=== PATIENT | female | born 2000 | race Caucasian/White ===

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

== ENCOUNTER → 2020-07-29 | Outpatient (CLI) | payer BC ==
[~2020-07-29] MED LIST changes: +ACHD5005 PO; +GADOBUTROL 7.5 MMOL/7.5 ML (GADAVIST) VIAL IV ONE; +IOHEXOL 300 MG/ML 50 ML (OMNIPAQUE 300) VIAL IV ONE
--- NOTE | 2020-07-29 10:58 | Diagnostic Imaging Report ---
INDICATION: Pain. PROCEDURE: The patient was placed on the table in the supine position. The patient's shoulder was prepped and draped in the usual sterile fashion. Local anesthesia was obtained with 2% lidocaine. A needle was advanced into the glenohumeral joint under fluoroscopic control. A mixture of saline, Omnipaque, and gadolinium was then infused. The needle was removed and adequate hemostasis was obtained. The patient tolerated the procedure well and left the Department in stable condition. IMPRESSION: Successful shoulder injection prior to MRI, as described above. Dictated by: Dictated on workstation # [id number]
--- NOTE | 2020-07-29 13:49 | Diagnostic Imaging Report ---
EXAMINATION: Magnetic resonance imaging of the left shoulder with intra-articular contrast. DATE: July 29, 2020. COMPARISON: Left shoulder arthrogram July 29, 2020. HISTORY: 19-year-old female, left shoulder pain. TECHNIQUE: Magnetic Resonance Imaging sequences were performed of the shoulder following the intra-articular administration of contrast. FINDINGS: ROTATOR CUFF, LIGAMENTS, TENDONS, AND MUSCLES: The supraspinatus, infraspinatus, teres minor, and subscapularis tendons and muscles are intact. There is normal rotator cuff muscle bulk and signal. LONG HEAD OF BICEPS: The biceps labral attachment and long head of the biceps tendon is intact. The long head of the biceps tendon is normally positioned within the bicipital groove. GLENOHUMERAL JOINT: The humeral head is well positioned relative to the glenoid. The labrum is intact. There is no identified paralabral cyst. The articular cartilage is grossly intact. There is no intra-articular body or prominent synovitis. ACROMIOCLAVICULAR JOINT: The acromioclavicular joint is normally aligned. The coracoclavicular and coracoacromial ligaments are intact. There are no degenerative changes of the acromioclavicular joint. BONE: There is an os acromiale. There is abnormal edema adjacent to the pseudoarticulation suggesting abnormal motion. There is no acute fracture, bone contusion, or evidence of osteonecrosis. BURSAE AND SOFT TISSUES: The bursae and soft tissue surrounding the shoulder are unremarkable. IMPRESSION: 1. Intact labrum and unremarkable additional glenohumeral joint evaluation. 2. Intact rotator cuff and proximal long head of biceps tendon. 3. Os acromiale with adjacent abnormal marrow edema suggesting abnormal motion. 4. No acute fracture, bone contusion, or evidence of osteonecrosis. 5. Intact acromioclavicular joint. Dictated by: Dictated on workstation # [id number]
== END ==
LOC: RAD 09:45
PROVIDERS: ATTEND Orthopaedic Surgery
DX: S43.432A Superior glenoid labrum lesion of left shoulder, initial encounter (principal); M89.212 Other disorders of bone development and growth, left shoulder
CPT/HCPCS: 23350; 73040; 73222

== ENCOUNTER 2020-08-18 05:31 | Outpatient (RCR) | payer BC ==
[~2020-08-18] VITALS: Ht 177.8 cm; Wt 50.5 kg
[~2020-08-18 05:31] MED LIST changes: +DEXT10TA9 PO; -GADOBUTROL 7.5 MMOL/7.5 ML (GADAVIST) VIAL IV ONE; -IOHEXOL 300 MG/ML 50 ML (OMNIPAQUE 300) VIAL IV ONE; +NORG1TAB83 PO
== END 2020-08-18 09:54 | disposition home or self-care (01) ==
LOC: PREOP 05:31
PROVIDERS: ATTEND Orthopaedic Surgery
DX: Z01.818 Encounter for other preprocedural examination (principal); Z20.828 Contact with and (suspected) exposure to other viral communicable diseases
CPT/HCPCS: 87635

== ENCOUNTER 2020-08-20 07:02 | Day surgery (SDC) | payer BC ==
--- NOTE | 2020-08-13 12:55 | HISTORY AND PHYSICAL ---
DATE OF SERVICE: This will be for outpatient surgery on 08/20/2020 for left shoulder arthroscopy. HISTORY OF PRESENT ILLNESS: The patient is a 19-year-old right hand dominant female with complaints of left shoulder pain. She injured her left shoulder when she was walking her dog. The dog pulled on since then she has had a pop in her shoulder, worse with overhead activities. She has tried rest, activity modifications without relief. She reports limitations of activities because of the shoulder and because of this, she has elected to proceed with surgical intervention. An MRI revealed an os acromiale, which was unfused and had signal at the site. REVIEW OF SYSTEMS: No chest pain, no shortness of breath, no dysuria. PAST MEDICAL HISTORY: Unremarkable. PAST SURGICAL HISTORY: Superficial cyst excision, wisdom tooth extraction. FAMILY HISTORY: Significant for ischemic heart disease, hypertension. PRIMARY CARE PROVIDER: . MEDICATIONS: Adderall, control, buspirone. ALLERGIES: TAMIFLU. SOCIAL HISTORY: The patient denies alcohol, tobacco use. RADIOGRAPHS: MRI, as above. PHYSICAL EXAMINATION: GENERAL: The patient is well-developed, well-nourished, in no acute distress. HEENT: Normocephalic, atraumatic. Pupils are equal, round and reactive to light. Oropharynx is clear. NECK: Supple, no lymphadenopathy. LUNGS: Clear to auscultation bilaterally. HEART: Regular rate and rhythm. ABDOMEN: Soft, nontender, nondistended. EXTREMITIES: Left shoulder demonstrates symmetric forward elevation, external and internal rotation, but positive Neer's and positive Hawkin sign. She is tender over her anterior acromion with motion noted with palpation. No gross weakness to abduction, external or internal rotation. IMPRESSION: Symptomatic left os acromiale. PLAN: Left shoulder arthroscopy with acromioplasty. The risks, benefits, options, ramifications and recovery were discussed at length with the patient. She understands and wishes to proceed. Job ID: [id number] DocumentID: [id number] Dictated Date: 08/13/2020 12:29:49 Department Assistant Date: 08/13/2020 12:54:24 Dictated By: ESTEPHANIE DONOVAN MD
[~2020-08-20] VITALS: Ht 157 cm; Wt 50.5 kg
[2020-08-20] VITALS (11 sets, daily range): BP systolic 124–139; BP diastolic 67–95
--- NOTE | 2020-08-20 07:23 | Progress Note-Pre Operative ---
Pre-Operative Progress Note H&P Reviewed The H&P was reviewed, patient examined and no changes noted. Date Seen by Provider: Aug 20, 2020 Time Seen by Provider: 07:22 Date H&P Reviewed: Aug 20, 2020 Time H&P Reviewed: 07:22 Pre-Operative Diagnosis: left os acromiale ESTEPHANIE DONOVAN MD Aug 20, 2020 07:22
--- NOTE | 2020-08-20 07:23 | Progress Note-Post Operative ---
Post-Operative Progess Note Surgeon (s)/Dairy Department Manager (s) Surgeon ESTEPHANIE DONOVAN MD Dairy Department Manager: Vasu Courtney Pre-Operative Diagnosis left os acromiale Post-Operative Diagnosis left os acromiale Procedure & Operative Findings Date of Procedure 08/20/20 Procedure Performed/Findings left shoulder arthroscopic os acromiale excision Anesthesia Type GETA Estimated Blood Loss Estimated blood loss (mL): minimal Specimens/Packing Specimens Removed none Packing: none ESTEPHANIE DONOVAN MD Aug 20, 2020 07:23
[2020-08-20] MEDS ORDERED: fentaNYL INJECTION 100 MCG/2 ML AMP ONE (07:25)
[2020-08-20] MEDS ORDERED: LIDOCAINE PF 2% 5 ML (XYLOCAINE) VIAL ONE (07:25)
[2020-08-20] MEDS ORDERED: proPOfol 200 MG/20 ML (DIPRIVAN) VIAL IV ONE (07:25)
[2020-08-20] MEDS ORDERED: GLYCOPYRROLATE 0.2 MG/ML (ROBINUL) 2 ML VIAL ONE (07:25)
[2020-08-20] MEDS ORDERED: MIDAZOLAM 2 MG/2 ML (VERSED) VIAL ONE (07:25)
[2020-08-20] MEDS ORDERED: NEOSTIGMINE 3 MG/3 ML VIAL ONE (07:25)
[2020-08-20] MEDS ORDERED: ROCURONIUM 10 MG/ML 5 ML SYRINGE IV ONE (07:25)
[2020-08-20] MEDS ORDERED: ONDANSETRON 4 MG/2 ML (SDV) Z0FRAN ONE (07:25)
[2020-08-20] MEDS ORDERED: WATER (STERILE) FOR INJECTION 10 ML ONE (07:42)
[2020-08-20] MEDS ORDERED: ceFAZolin INJECTION 1,000 MG ONE (07:42)
[2020-08-20] MEDS ORDERED: ceFAZolin INJECTION 1,000 MG in WATER (STERILE) FOR INJECTION 10 ML IV ONE (07:45)
[2020-08-20] MEDS ORDERED: HYDROcodone/APAP 7.5 MG/325 MG (LORTAB, LORCET PLUS) TABLET PO PRN (07:45)
[2020-08-20] MEDS: LACTATED RINGERS 1,000 ML IV PRN ×2 (07:47→09:33)
[2020-08-20] MEDS ORDERED: BUPIVACAINE 0.25% 30 ML (SENSORCAINE) VIAL ONE (07:54)
[2020-08-20] MEDS ORDERED: morphine PF (DURAMORPH) 10 MG/10 ML AMP ONE (07:54)
[2020-08-20] MEDS ORDERED: CATHETER FLUSH 10 ML SYR IV PRN (08:00)
[2020-08-20] MEDS ORDERED: SEVOFLURANE (ULTANE) 15 ML INHAL SOLN ONE (09:05)
[2020-08-20] MEDS ORDERED: KETOROLAC 30 MG/ML VIAL ONE (09:22)
[2020-08-20] MEDS ORDERED: HYDROmorphone 2 MG/ML VIAL (DILAUDID) ONE (09:23)
[2020-08-20] MEDS ORDERED: ONDANSETRON 4 MG/2 ML (SDV) Z0FRAN IVP PRN (09:30)
[2020-08-20] MEDS ORDERED: KETOROLAC 30 MG/ML VIAL IVP ONE (09:30)
[2020-08-20] MEDS ORDERED: HYDROmorphone 2 MG/ML VIAL (DILAUDID) IV ONE (09:30)
--- NOTE | 2020-08-20 10:38 | Anesthesia-General Post-Op ---
General Patient Condition Mental Status/LOC: Same as Preop Cardiovascular: Satisfactory Nausea/Vomiting: Absent Respiratory: Satisfactory Pain: Controlled Complications: Absent Post Op Complications Complications None Follow Up Care/Instructions Patient Instructions None needed. Anesthesia/Patient Condition Patient Condition Patient is doing well, no complaints, stable vital signs, no apparent adverse anesthesia problems. No complications reported per nursing. [place] [facility] [place]: Yes THAD MCKENNA SWEDGER Aug 20, 2020 10:38
[2020-08-20] MEDS ORDERED: HYDR-3817 PO (10:55)
--- NOTE | 2020-08-20 15:35 | OPERATIVE REPORT ---
DATE OF SERVICE: 08/20/2020 PREOPERATIVE DIAGNOSIS: Symptomatic left os acromiale. POSTOPERATIVE DIAGNOSIS: Symptomatic left os acromiale. PROCEDURES: Left shoulder arthroscopic os acromiale excision. SURGEON: Derrick Donovan MD EARTHMOVING LABOURER: Vasu Courtney, who assisted throughout the procedure and closed the incisions. ANESTHESIA: General endotracheal by Jasvir Aldana CRNA. ESTIMATED BLOOD LOSS: Minimal. DRAINS: None. COMPLICATIONS: None. POSTOPERATIVE PLAN: Sling wear for comfort with progressive range of motion as symptoms allow. The patient was transferred to the recovery room awake and in stable condition. STATEMENT OF MEDICAL NECESSITY: The patient is a 19-year-old female with complaints of left shoulder pain, worse with overhead activities. She was found on MRI to have an os acromiale with fluid around it. She was tender at this area, had a positive Neer's and Hawkin sign and failed to respond to conservative measures and because of this, elected to proceed with surgical intervention. Examination under anesthesia revealed forward elevation of 170 degrees, external rotation of 90 degrees and internal rotation of 80 degrees. Arthroscopic findings demonstrated no glenoid or humeral head articular wear. The biceps anchor was intact. There was no labral pathology noted. The rotator cuff was intact. Subacromial space demonstrated dense bursitis with evidence of an anterior os acromiale is approximately 1 cm in depth. DESCRIPTION OF PROCEDURE: After risks and benefits of procedure were discussed and questions were answered, informed consent was signed and placed on chart. The operative site was confirmed in the preoperative holding area initialed by the surgeon. The patient was transferred to the operating room and after adequate levels of general endotracheal anesthetic were obtained, a timeout was called, confirming the operative site. Examination under anesthesia was performed with above findings noted. The left shoulder was injected with 20 mL of fluid and standard posterior portal was placed. Diagnostic arthroscopy was carried out with above findings noted. Scope was redirected into the subacromial space. Lateral portal was created. A bursectomy was performed. The os acromiale was visualized off the anterior aspect of the acromion. This was excised through the lateral portal with the bur. The scope was redirected into the lateral portal to ensure adequate excision. The wound was copiously irrigated. Port sites were closed with 4-0 nylon in septic fashion. Shoulder was injected with Duramorph. Port sites were infiltrated with plain Marcaine. A soft dressing and sling were applied. The patient was transferred to the recovery room awake and in stable condition. Job ID: [id number] DocumentID: [id number] Dictated Date: 08/20/2020 09:23:55 Trolley Operator Date: 08/20/2020 15:34:05 Dictated By: DERRICK DONOVAN MD
== END 2020-08-20 11:35 | disposition home or self-care (01) ==
LOC: SDC 07:02
PROVIDERS: ATTEND Orthopaedic Surgery
DX: M89.8X1 Other specified disorders of bone, shoulder (principal); M75.52 Bursitis of left shoulder; F90.9 Attention-deficit hyperactivity disorder, unspecified type; Z88.7 Allergy status to serum and vaccine; Z82.49 Family history of ischemic heart disease and other diseases of the circulatory system
CPT/HCPCS: 84703; 87081

== ENCOUNTER → 2020-11-25 | Outpatient (CLI) | payer BC ==
[~2020-11-25] MED LIST changes: +HYDR-3817 PO
--- NOTE | 2020-11-25 16:20 | Diagnostic Imaging Report ---
INDICATION: Toe pain. COMPARISON: None. FINDINGS: Multiple radiographic views of the left foot demonstrate no acute fracture or dislocation. There are no focal osseous lesions. There is no soft tissue swelling. Joint spaces are well maintained. No radiopaque foreign bodies are seen. IMPRESSION: No acute fractures or dislocations of the left foot. Dictated by: Dictated on workstation # [id number]
--- NOTE | 2020-11-25 16:21 | Diagnostic Imaging Report ---
INDICATION: Pain to the toe. COMPARISON: None. FINDINGS: Three views of the left fifth toe were obtained and show no fractures, dislocations, or other acute bony abnormalities. Joint spaces are well maintained throughout. The soft tissues appear unremarkable. No radiopaque foreign bodies are identified. IMPRESSION: Unremarkable radiographic exam of the left fifth toe. Dictated by: Dictated on workstation # [id number]
== END ==
LOC: RAD 15:47
PROVIDERS: ATTEND Internal Medicine
DX: M79.675 Pain in left toe(s) (principal)
CPT/HCPCS: 73630; 73660